=== PATIENT | male | born 1990 | race Caucasian/White ===

== ENCOUNTER 2025-03-23 11:48 | Emergency (ER) | payer SELFPAY ==
[2025-03-23] MEDS ORDERED: Cyclobenzaprine 10 MG TAB ONE (12:38)
== END 2025-03-23 14:00 | disposition home or self-care (01) ==
LOC: ERS 11:48
DX: S39.012A Strain of muscle, fascia and tendon of lower back, initial encounter (principal); F17.290 Nicotine dependence, other tobacco product, uncomplicated; X50.0XXA Overexertion from strenuous movement or load, initial encounter
CPT/HCPCS: 96372; 99283